=== PATIENT | female | born 1940 | race Caucasian/White ===

== ENCOUNTER 2018-06-08 17:38 | Inpatient (IN) | payer BC, MEDICARE ==
--- NOTE | 2018-06-08 18:00 | ERNOTE ---
Dyspnea - General Presenting Symptoms: shortness of breath Time Seen by Provider: 06/08/18 17:51 Source: patient, family Exam Limitations: no limitations - Immun/Allergies/Home Medications Immunizations: IMMUNIZATION HX Immunizations Up to Date No History of Influenza Vaccine No Hx Pneumococcal Vaccination No Allergies/Adverse Reactions: Allergies acetaminophen [From Percocet] Adverse Reaction (Mild, Verified 05/03/18 10:01) UPSET STOMACH atorvastatin calcium [From Lipitor] Adverse Reaction (Mild, Verified 05/03/18 10:01) Muscle Pain oxycodone HCl [From Percocet] Adverse Reaction (Mild, Verified 05/03/18 10:01) UPSET STOMACH pravastatin sodium [From Pravachol] Adverse Reaction (Mild, Verified 05/03/18 10:01) HAIR LOSS Home Medications: HOME MEDICATIONS Labetalol HCl [Trandate] 300 mg PO BID 01/17/14 [Last Taken Unknown] vitamin,calcium,lvdqxcno-ynqz-vlzpa acid tablet 1 tab PO DAILY #30 tab 05/29/18 [Last Taken Unknown] spironolactone 50 mg tablet 50 mg PO BID #60 tab 06/07/18 [Last Taken Unknown] - History of Present Illness Narrative: PAtient states that she has been progressively short of breath for a few days. She has a history liver cirrhosis, is not aware of any lung or heart disease. She saw her PCP (Dr Perdomo) two weeks ago was diagnosed with a possible pneumonia and treated with oral antibiotics. She also had a moderate right sided pleural effusion, denies chest pain, no fever, slight cough. O2 sat on arrival was 88% Severity: severe Initiating event: Denies: upper resp illness Frequency of episodes: Reports: occassional episodes Modifying Factors - (Improves): Reports: nothing Modifying Factors (Worsens): Reports: activity Associated Symptoms-Dyspnea: Denies: fever/chills, chest pain/discomfort Prior Treatment: Reports: recently seen. Denies: currently on antibiotics Review of Systems - Review of Systems Constitutional: Present: recent illness. Absent: fever ENT: Absent: nose congestion, sore throat Respiratory: Present: See HPI, shortness of breath Cardiology: Absent: chest pain Gastrointestinal/Abdominal: Absent: nausea, abdominal pain Genitourinary: Present: no symptoms reported Medical History (Last Reviewed 06/08/18 @ 18:40 by Emily Nelson MD) Left hip pain (Chronic) Hyperlipidemia (Chronic) Onset Date: Unknown Thrombocytopenia (Chronic) Onset Date: ~07/18/17 Lower extremity edema (Chronic) Onset Date: ~01/14/14 Lichen planus (Chronic) Onset Date: ~04/2015 Lesion of spleen (Chronic) Onset Date: ~07/18/17 Hypertension (Chronic) Onset Date: ~1993 Cirrhosis of liver (Chronic) Onset Date: ~07/18/17 Abnormal Pap smear of vagina Onset Date: ~1968 Abnormal electrocardiogram Onset Date: ~12/2010 Anemia Onset Date: Unknown Pneumonia Onset Date: Unknown Surgical History: Surgical History (Last Reviewed 06/08/18 @ 18:40 by Emily Nelson MD) Cataract Onset Date: ~01/21/14 H/O toe surgery Onset Date: ~02/10/06 Right-Dr Boo History of YAG laser capsulotomy of lens of left eye Onset Date: ~10/21/14 History of colonoscopy Onset Date: ~07/08/15 [place]-'07 tubular adenoma x2. '15 Tubular adenoma. Recheck 5 yrs. History of open reduction and internal fixation (ORIF) procedure Onset Date: ~12/24/10 left ankle History of total abdominal hysterectomy Onset Date: ~1969 Family History: Family History (Last Reviewed 05/30/18 @ 12:38 by Esteban Perdomo MD) Father Throat cancer Brother Leukemia Sister Breast cancer Lung cancer Son Suicide Social History: Preferred Language Czech Smoking Status Current some day smoker Abuse History No History of abuse Psych History No pertinent hx (Last Updated 05/30/18 @ 12:46 by Esteban Perdomo MD) No Social History Section defined states that she stopped smoking a long time ago Physical Exam - Physical Exam General Appearance: Present: wd/wn, alert, moderate distress, anxious Head Exam: Present: normal inspection Respiratory: Present: respiratory distress, decreased breath sounds - on complete right lung, expiration (prolonged) - left lung, wheezing - left lung Cardiovascular/Chest: Present: regular rate, rhythm, no murmur Gastrointestinal/Abdominal: Present: nontender Extremity Exam: Present: pedal edema Neurological Exam: Present: alert, oriented, normal mood/affect Skin Exam: Present: warm/dry, jaundice ED Progress - Results and Orders Patient's Lab Results:: I have reviewed the patient's lab results. - Vital Signs Patient's Vital Signs:: I have reviewed the patient's vital signs. Vital Signs: Vital Signs 06/08/18 17:48 Temperature 37.0 C Pulse Rate 96 Respiratory Rate 29 H Blood Pressure 154/97 H O2 Sat by Pulse Oximetry 95 - EKG EKG: NSR EKG read: Interp. by me - X-Ray X-Ray #1 X-Ray: chest - right sided pleural effusion with almost complete white out of right side Interpretation: Interp. by me X-Ray #2 X-Ray: chest - reduced pleural effusion Interpretation: Interp. by me - Progress/Reassessment Chief Complaint: Dyspnea Progress Note-Subjective: 06/08/18 18:[address] Gates 06/08/18 18:47 improved air movement on left lung after albuterol, patient not feeling much better 06/08/18 19:12 Dr Gates at bedside 06/08/18 20:20 patient feels only minimally better 2 liters of fluids were tapped off her lungs offered admission, patient agreed reports that patient used to drink gin and tonic (amount?) on a regular basis, she has now cut down to one glass wine daily 06/08/18 20:[address] Matt, cheleay to admit for observation, give one dose of ancef Departure Clinical Impression: Pleural effusion associated with hepatic disorder Cirrhosis of liver Qualifiers: Hepatic cirrhosis type: unspecified hepatic cirrhosis Ascites presence: unspecified Qualified Code(s): K74.60 - Unspecified cirrhosis of liver - Departure Disposition: Still a patient Condition: Stable
[2018-06-08] MEDS ORDERED: ALBUTEROL SULFATE 2.5 MG/0.5 ML VIAL.NEB IH ONE (18:23)
[2018-06-08 18:24] LABS: Prothrombin Time (Patient) 16.9 Seconds (9.0-11.0)
[2018-06-08] MEDS ORDERED: MORPHINE SULFATE 2 MG/ML DISP.SYRIN IV ONE (18:24)
[2018-06-08 18:30] LABS: ALT 35 U/L (19-67); AST 54 U/L (0-48); Albumin * 1.9 gm/dl (3.4-5.0); Alkaline Phosphatase * 222 U/L (50-170); Amylase * 63 U/L (25-115); Anion Gap 11.3 mmol/L (6.8-13.8); BNP * 370 pg/mL (5-550); BUN/Creatinine Ratio 20.4 (9.0-21.6); Bilirubin, Total 8.5 mg/dL (0.0-1.1); Blood Urea Nitrogen 20 mg/dL (3-23); Ca. Corrected For Albumin 10.1 mg/dL (8.4-10.2); Calcium * 8.7 mg/dL (7.9-10.9); Carbon Dioxide 21.5 mmol/L (24-32.6); Chloride 103 mmol/L (97-106); Glucose * 124 mg/dL (70-110); Lipase 312 U/L (73-393); Potassium 4.8 mmol/L (3.4-4.6); Sodium 131 mmol/L (132-142); Total Protein 6.7 gm/dL (6.2-8.2); Troponin I Less than 0.017 ng/mL (0.00-0.10)
[2018-06-08 18:47] LABS: INR 1.68 INR (0.90-1.10); Partial Thrombolplastin Time 35.6 Seconds (24-32)
[2018-06-08 18:55] LABS: Hematocrit 38.1 % (37.0-47.0); Hemoglobin 13.2 gm/dL (12.5-16.0); Mean Cell Volume 116.5 fl (78-100); Mean Corpuscular Hemoglobin 40.4 pg (27-31); Mean Corpuscular Hgb Conc 34.6 g/dl (32-36); Mean Platelet Volume 8.7 fl (8-12.5); Platelet Count 117 K/mm3 (150-450); Red Blood Count 3.27 M/mm3 (4.2-5.4); Red Cell Distribution Width 15.8 % (11.5-14.0); White Blood Count 6.6 K/mm3 (4.0-10.5)
[2018-06-08 19:18] LABS: Total Cells Counted 100
[2018-06-08 19:19] LABS: Anisocytosis 1+; Band 1 % (0-2.0); Eosinophil 2 % (0-3); Giant Platelets Trace; Lymphocyte 4 % (20-51); Monocyte 8 % (0-9); Neutrophil 85 % (42-75); Neutrophil # 5.6 K/mm3 (1.3-6.0); Platelet Estimate Decreased (NORMAL)
[2018-06-08] MEDS ORDERED: BUPIVACAINE HCL 50 ML VIAL IJ ONE (19:33)
[2018-06-08 20:26] LABS: Body Fluid WBC 2750 /uL (0-1000)
[2018-06-08 20:29] LABS: Body Fluid Appearance BLOODY (CLEAR); Body Fluid Color RED (COLORLESS)
--- NOTE | 2018-06-08 20:32 | OR ---
Operative Report - Dictated Report Narrative: OPERATIVE REPORT DATE OF OPERATION: 06/08/2018 PREOPERATIVE DIAGNOSIS: Right pleural effusion POSTOPERATIVE DIAGNOSIS: Right pleural effusion OPERATION: Right posterior thoracentesis SURGEON: Natalie Gates MD ANESTHESIA: 0.5% Marcaine INDICATIONS FOR PROCEDURE: The patient is an 78-year-old female who has had an increasing right pleural effusion. She has become acutely more short of breath and chest x-ray reveals almost complete opacification of the right hemithorax with a left shift. Her platelet count is decreased and her INR is 1.6, however the benefit of thoracentesis outweighs the possible risk of serious bleeding. FINDINGS: 2 L of blood-tinged fluid removed NARRATIVE OF PROCEDURE: The patient was identified preoperatively and prior to the procedure multidisciplinary timeout was observed. The right posterior chest was percussed and a level of dullness marked. The right posterior chest was prepped with chlorhexidine and a sterile drape was placed. 0.5% Marcaine was used to anesthetize the skin, subcutaneous tissue, and periosteum of the chosen rib. The same needle was then used to access the right chest with return of slightly blood-tinged fluid. Next using a safety centesis kit the right posterior chest was accessed and the catheter advanced. This was then connected to a suction bottle and 1 L of blood-tinged fluid was removed. An additional bottle was then connected and an additional 1 L of fluid removed. The catheter was then removed and a pressure dressing of 2 x 2 and Band-Aid was applied. The patient tolerated the procedure well without complication. Post procedure chest x-ray revealed decrease in the left shift and less fluid in the right chest. Fluid was sent to the lab. The patient will be placed in observation and consideration given to additional tap depending on the chest x-ray tomorrow. Reviewed and electronically signed
[2018-06-08] MEDS ORDERED: ceFAZolin SODIUM 1 GM VIAL IV ONE (20:37)
[2018-06-08] MEDS ORDERED: NORMAL SALINE 1,000 ML IV ONE (20:37)
[2018-06-08] MEDS ORDERED: ceFAZolin SODIUM 1 GM in DEXTROSE 5 % IN WATER 100 ML IV SCH ×2 (22:30)
[2018-06-09] MEDS: MORPHINE SULFATE 2 MG/ML DISP.SYRIN IV PRN (02:57)
[2018-06-09 05:54] LABS: Total Protein Body Fluid 3.2 mg/dL
[2018-06-09 06:38] LABS: LD 303 U/L (81-234)
--- NOTE | 2018-06-09 07:21 | HP ---
Chief Complaint - Chief Complaint Date of Service: 06/09/18 Time of Service: 07:00 Chief Complaint: Can't breath! History of Present Illness: Pt. is 78 WF with PMH significant for cirrhosis of the liver and chronic right pleural effusion (of unknown etiology and with previous thoracentesis due to severe symptoms) has been battling SOB, but with CXR showing no progression of effusion until recently, for which she was admitted due to hypoxia, SOB and left shift of the mediastinum due to the effusion. She denies F/C/hemoptysis/N/V but has had more RUQ pain. She has limited her EtOH consumption to 1 glass of wine/day down from 4-6 mixed drinks daily and denies any other vices. She does have a history of smoking (50py), but previous workup of her pleural effusion did not show concerns for lung cancer. She denies any CP, but has had more orthopnea and increased LE edema. She had to decrease her lasix and stop her spironolactone due to hypotension, but restarted the spironolactone the last week due to increasing LE edema. When she presented to the ER she was in significant respiratory distress, requiring O2 at 2LNC to keep sats in the low 90's (normally she is just on RA with sats in the low 90's), RR was in the upper 20's, low 30's and was found to have significant pleural effusion filling up almost the entire lung cavity, with left shift of the mediastinum, causing cardiac output issues as well as oxygenation issues. She was taken to OR by Dr. Gates who did a thoracentesis and this am she is breathing better, but still with complaint of RUQ pain. Medical History (Last Reviewed 06/09/18 @ 02:20 by Michelle Allen RN) Left hip pain (Chronic) Hyperlipidemia (Chronic) Onset Date: Unknown Thrombocytopenia (Chronic) Onset Date: ~07/18/17 Lower extremity edema (Chronic) Onset Date: ~01/14/14 Lichen planus (Chronic) Onset Date: ~04/2015 Lesion of spleen (Chronic) Onset Date: ~07/18/17 Hypertension (Chronic) Onset Date: ~1993 Cirrhosis of liver (Chronic) Onset Date: ~07/18/17 Arthritis Abnormal Pap smear of vagina Onset Date: ~1968 Abnormal electrocardiogram Onset Date: ~12/2010 Anemia Onset Date: Unknown Pneumonia Onset Date: Unknown Surgical History: Surgical History (Last Reviewed 06/09/18 @ 02:21 by Michelle Allen RN) History of partial hysterectomy Onset Date: ~1969 Cataract Onset Date: ~01/21/14 H/O toe surgery Onset Date: ~02/10/06 Right-Dr Boo History of YAG laser capsulotomy of lens of left eye Onset Date: ~10/21/14 History of colonoscopy Onset Date: ~07/08/15 [place]ingu[place]-' tubular adenoma x2. '15 Tubular adenoma. Recheck 5 yrs. History of open reduction and internal fixation (ORIF) procedure Onset Date: ~12/24/10 left ankle Family History: Family History (Last Reviewed 06/09/18 @ 02:21 by Michelle Allen RN) Father Throat cancer Brother Leukemia Sister Breast cancer Lung cancer Son Suicide Social History: Patient Lives/Resources With Spouse Utilized Preferred Language Albanian Do you have any hoahaoism or Yes: samaritan cultural preference? Smoking Status Former smoker Have you smoked in the past 12 No months Do you dip or chew tobacco No Abuse History No History of abuse Psych History No pertinent hx Alcohol Use occasionally Drug Use none (Last Updated 05/30/18 @ 12:46 by Esteban Perdomo MD) No Social History Section defined Review Of Systems (GEN) - Review of Systems Generalized/Overall Review: Present: Weakness, Malaise, Fatigue, Weight gain. Absent: Chills, Fever, Diaphoresis EENTM: Present: No Symptoms Reported Respiratory: Present: Cough, Shortness of Breath, Orthopnea. Absent: Stridor, Wheezing Cardiac: Present: Edema. Absent: Chest Pain, Palpitations, Syncope Abdominal: Present: Abdominal Pain. Absent: Nausea, Vomiting, Hematemesis, Constipation, Diarrhea, Melena, Bright blood from rectum Genitourinary: Present: No Symptoms Reported Musculoskeletal: Present: No Symptoms Reported Neurological: Present: Weakness Skin: Present: No Symptoms Reported Endocrine: Present: No Symptoms Reported Immunizations: IMMUNIZATION HX Immunizations Up to Date No History of Influenza Vaccine No Hx Pneumococcal Vaccination No Allergies/Adverse Reactions: Allergies Allergy/AdvReac Type Severity Reaction Status Date / Time acetaminophen [From Percocet] AdvReac Mild UPSET Verified 05/03/18 10:01 STOMACH atorvastatin calcium AdvReac Mild Muscle Pain Verified 05/03/18 10:01 [From Lipitor] oxycodone HCl [From Percocet] AdvReac Mild UPSET Verified 05/03/18 10:01 STOMACH pravastatin sodium AdvReac Mild HAIR LOSS Verified 05/03/18 10:01 [From Pravachol] Home Medications: HOME MEDICATIONS Labetalol HCl [Trandate] 150 mg PO BID 01/17/14 [Last Taken 06/08/18 10:00] vitamin,calcium,wjrmlclt-mmnv-znkxw acid tablet 1 tab PO DAILY #30 tab 05/29/18 [Last Taken 06/08/18 10:00] spironolactone 50 mg tablet 50 mg PO BID #60 tab 06/07/18 [Last Taken 06/08/18 10:00] Furosemide 20 mg PO DAILY 06/08/18 [Last Taken 06/08/18 10:00] Exam - Exam Vital Signs: Vital Signs - Last Taken Temp 37.0 C 06/09/18 02:00 Pulse 83 06/09/18 02:00 Resp 16 06/09/18 02:00 BP 110/60 06/09/18 02:00 Pulse Ox 94 06/09/18 02:00 Constitutional: Present: Alert, Oriented x3, Cooperative, Mild distress, Elderly, Looks Older than stated age ENT Exam: Present: hearing grossly normal Eye Exam: bilateral eye: scleral icterus Neck: Present: supple Back Exam: Present: normal inspection Respiratory: Present: chest non-tender, lungs clear, normal breath sounds, no respiratory distress, no accessory muscle use Cardiovascular/Chest: Present: regular rate, rhythm, no JVD, edema Abdomen: Present: Normal bowel sounds, soft, tender - RUQ with hard hepatom egaly, guarding. Absent: rigidity, rebound tenderness /Rectal: Present: Exam deferred Extremity: Present: pedal edema Skin Exam: Present: cool/dry Neurologic: Present: oriented x 3, depressed affect Appearance: Present: appropriate insight, no memory impairment Eye contact: Present: cooperative, normal speech Thoughts: Present: normal thought pattern, no apparent hallucination Diagnostic Studies: Abnormal Lab Results 06/08/18 06/08/18 06/08/18 Range/Units 18:09 18:09 18:09 RBC 3.27 L (4.2-5.4) M/mm3 MCV 116.5 H (78-100) fl MCH 40.4 H (27-31) pg RDW 15.8 H (11.5-14.0) % Plt Count 117 L (150-450) K/mm3 Neutrophils % (Manual) 85 H (42-75) % Lymphocytes % (Manual) 4 L (20-51) % Lymphocytes # (Manual) 0.3 L (1.5-3.5) k/mm3 Platelet Estimate Decreased L (NORMAL) PT 16.9 H (9.0-11.0) Seconds INR (Anticoag Therapy) 1.68 H (0.90-1.10) INR PTT (Chiqui) 35.6 H (24-32) Seconds Sodium 131 L (132-142) mmol/L Potassium 4.8 H (3.4-4.6) mmol/L Carbon Dioxide 21.5 L (24-32.6) mmol/L Est GFR (Non-Af Amer) 58 L D (60-130) mL/min Random Glucose 124 H (70-110) mg/dL Total Bilirubin 8.5 H (0.0-1.1) mg/dL AST 54 H (0-48) U/L Alkaline Phosphatase 222 H (50-170) U/L Lactate Dehydrogenase 303 H (81-234) U/L Albumin 1.9 L (3.4-5.0) gm/dl Fluid WBC (0-1000) /uL Fluid RBC (0-1000) /uL 06/08/18 Range/Units 20:00 RBC (4.2-5.4) M/mm3 MCV (78-100) fl MCH (27-31) pg RDW (11.5-14.0) % Plt Count (150-450) K/mm3 Neutrophils % (Manual) (42-75) % Lymphocytes % (Manual) (20-51) % Lymphocytes # (Manual) (1.5-3.5) k/mm3 Platelet Estimate (NORMAL) PT (9.0-11.0) Seconds INR (Anticoag Therapy) (0.90-1.10) INR PTT (Kaufman) (24-32) Seconds Sodium (132-142) mmol/L Potassium (3.4-4.6) mmol/L Carbon Dioxide (24-32.6) mmol/L Est GFR (Non-Af Amer) (60-130) mL/min Random Glucose (70-110) mg/dL Total Bilirubin (0.0-1.1) mg/dL AST (0-48) U/L Alkaline Phosphatase (50-170) U/L Lactate Dehydrogenase (81-234) U/L Albumin (3.4-5.0) gm/dl Fluid WBC 2750 H (0-1000) /uL Fluid RBC Greater than 1000.0 H (0-1000) /uL Laboratory Results WBC 6.6 K/mm3 (4.0-10.5) 06/08/18 18: RBC 3.27 M/mm3 (4.2-5.4) L 06/08/18 18: Hgb 13.2 gm/dL (12.5-16.0) 06/08/18 18: Hct 38.1 % (37.0-47.0) 06/08/18 18: MCV 116.5 fl (78-100) H 06/08/18 18: MCH 40.4 pg (27-31) H 06/08/18 18: MCHC 34.6 g/dl (32-36) 06/08/18 18: RDW 15.8 % (11.5-14.0) H 06/08/18 18:09 Plt Count 117 K/mm3 (150-450) L 06/08/18 18: MPV 8.7 fl (8-12.5) 06/08/18 18:09 Neutrophils % (Manual) 85 % (42-75) H 06/08/18 18:09 Band Neuts % (Manual) 1 % (0-2.0) 06/08/18 18:09 Lymphocytes % (Manual) 4 % (20-51) L 06/08/18 18:09 Monocytes % (Manual) 8 % (0-9) 06/08/18 18:09 Eosinophils % (Manual) 2 % (0-3) 06/08/18 18:09 Neutrophils # (Manual) 5.6 K/mm3 (1.3-6.0) 06/08/18 18:09 Lymphocytes # (Manual) 0.3 k/mm3 (1.5-3.5) L 06/08/18 18:09 Monocytes # (Manual) 0.5 k/mm3 (0.0-1.0) 06/08/18 18:09 Eosinophils # (Manual) 0.1 k/mm3 (0.0-0.7) 06/08/18 18:09 Platelet Estimate Decreased (NORMAL) L 06/08/18 18:09 Giant Platelets Trace 06/08/18 18:09 Anisocytosis 1+ 06/08/18 18:09 PT 16.9 Seconds (9.0-11.0) H 06/08/18 18:09 INR (Anticoag Therapy) 1.68 INR (0.90-1.10) H 06/08/18 18:09 PTT (Chiqui) 35.6 Seconds (24-32) H 06/08/18 18:09 Sodium 131 mmol/L (132-142) L 06/08/18 18:09 Plasma Sodium 131 mmol/L (130-142) 06/08/18 18:09 Potassium 4.8 mmol/L (3.4-4.6) H 06/08/18 18:09 Chloride 103 mmol/L (97-106) 06/08/18 18:09 Carbon Dioxide 21.5 mmol/L (24-32.6) L 06/08/18 18:09 Anion Gap 11.3 mmol/L (6.8-13.8) 06/08/18 18:09 BUN 20 mg/dL (3-23) 06/08/18 18:09 Creatinine 0.98 mg/dL (0.4-1.4) 06/08/18 18:09 Est GFR (Non-Af Amer) 58 mL/min (60-130) L D 06/08/18 18:09 BUN/Creatinine Ratio 20.4 (9.0-21.6) 06/08/18 18:09 Random Glucose 124 mg/dL (70-110) H 06/08/18 18:09 Calcium 8.7 mg/dL (7.9-10.9) 06/08/18 18:09 Calcium Adj for Albumin 10.1 mg/dL (8.4-10.2) 06/08/18 18:09 Total Bilirubin 8.5 mg/dL (0.0-1.1) H 06/08/18 18:09 AST 54 U/L (0-48) H 06/08/18 18:09 ALT 35 U/L (19-67) 06/08/18 18:09 Alkaline Phosphatase 222 U/L (50-170) H 06/08/18 18:09 Ammonia 18.0 mcmol/L (11-35) 06/08/18 18:09 Lactate Dehydrogenase 303 U/L (81-234) H 06/08/18 18:09 Troponin I Less than 0.017 ng/mL (0.00-0.10) 06/08/18 18:09 B-Natriuretic Peptide 370 pg/mL (5-550) 06/08/18 18:09 Total Protein 6.7 gm/dL (6.2-8.2) 06/08/18 18:09 Albumin 1.9 gm/dl (3.4-5.0) L 06/08/18 18:09 Amylase 63 U/L (25-115) 06/08/18 18:09 Lipase 312 U/L (73-393) 06/08/18 18:09 Fluid Color Red (COLORLESS) 06/08/18 20:00 Fluid Appearance Bloody (CLEAR) 06/08/18 20:00 Fluid WBC 2750 /uL (0-1000) H 06/08/18 20:00 Fluid RBC Greater than 1000.0 /uL (0-1000) H 06/08/18 20:00 Fluid Neutrophils 34 % 06/08/18 20:00 Fluid Lymphocytes 63 % 06/08/18 20:00 Fluid Monocytes 2 % 06/08/18 20:00 Fluid Eosinophils 1 % 06/08/18 20:00 Fluid Total Protein 3.2 mg/dL 06/08/18 19:00 Fluid LDH 235 U/L 06/08/18 19:00 Miscellaneous Cytology Spec. sent to path. 06/08/18 20:00 Assessment/Plan - Assessment/Plan (1) RUQ abdominal pain Assessment: most likely from her liver cirrhosis. will follow for now. Problem: Acute (2) Hypoxia Assessment: due to severe pleural effusion. she is still on O2 this am and will need to either be weaned off O2 or qualify for home O2. Problem: Acute (3) Respiratory distress, acute Assessment: stabilized post thoracentesis. Problem: Acute (4) Leukopenia Problem: Acute (5) Shortness of breath Problem: Acute (6) Pleural effusion associated with hepatic disorder Assessment: most likely from her liver, though still concerns for lymphoma or other causes so will get flow cytometry from the fluid draw off yesterday to see if there is another cause or reason. Will restart her labetolol and spironolactone for now to see how her BP's due and in hopes this will help sx. Will restart lasix as her BP's tolerate it. Problem: Acute (7) Cirrhosis of liver Assessment: most likely causing her persistant and worsening pleural effusion. She has stated she doesn't want any aggression tx or procedures such as a TIPS (which I'm not sure if this would help or not anyway). Will continue to manage sx with medications, but will possibly need periodic thoracentesis. Will try to discuss hospice with her later today. Problem: Chronic Qualifiers: Hepatic cirrhosis type: unspecified hepatic cirrhosis Ascites presence: unspecified Qualified Code(s): K74.60 - Unspecified cirrhosis of liver (8) Discharge planning issues Assessment: can discharge when off O2 or O2 in place at home. d/w her hospice. await pathology and flow cytometry results to hopefully be able to better direct her care. Problem: Acute
[2018-06-09] MEDS: SPIRONOLACTONE 25 MG TABLET PO SCH ×2 (09:19→21:39)
[2018-06-09] MEDS: LABETALOL HCL 100 MG TABLET PO SCH ×2 (09:19→21:38)
[2018-06-09] MEDS: PRENATAL VITS96/IRON FUM/FOLIC 1 TAB TABLET PO SCH (09:28)
[2018-06-09] MEDS: ONDANSETRON HCL/PF 2 MG/ML VIAL IV PRN ×2 (11:32→17:05)
--- NOTE | 2018-06-09 14:30 | PN ---
Magdalena Note - Interim Date: 06/09/18 Time: 11:45 Narrative: 06/09/18 14:24 Pt. having troubles mentating and staying awake. She knows where she is, but is having troubles focusing and making decisions right now. D/w her in regards to doing hospice and she is falling asleep during the conve rsation with her drifting in and out, saying "i'm not sure" and "I'm having troubles focusing". She is more jaundice now than she was a couple weeks ago and definitely more somnolent, weak and thin. A/P: Encephalopathy due to liver failure/cirrhosis. Patient is definitely not able to go home and be independent as she will be at high fall risk, increasing her risk for significant morbidity if not mortality. Given her liver failure a fall that causes a head injury could definitely lead to intracranial bleed. I think that due to this risk she should qualify for inpatient care, with assessment and treatment with Physical Therapy, prior to making a decision to go home or possibly to a care center. She is not capable of being independent enough to do either at this time though.
--- NOTE | 2018-06-10 09:07 | PN ---
Subjective - Date and Time Seen Date: 06/10/18 Time: 08:58 Subjective Narrative: Still feels weak, but somewhat better this am, though states didn't sleep well. Still feeling very SOB. She has decided to go to hospice and to the NH so she can be cared for as she doesn't want to burden her . Objective - Review of Systems Generalized/Overall Review: Reports: Weakness, Fatigue. Denies: Chills, Fever EENTM: Reports: No Symptoms Reported Respiratory: Reports: Shortness of Breath, Orthopnea Cardiac: Denies: Chest Pain Abdominal: Reports: Nausea, Vomiting. Denies: Constipation, Diarrhea Genitourinary Symptoms: Reports: No Symptoms Reported Musculoskeletal Complaints: Reports: No Symptoms Reported Neurological: Reports: Weakness Skin: Reports: No Symptoms Reported Endocrine: Reports: No Symptoms Reported - Vitals Vitals: Last Vital Signs Temp 36.9 C 06/10/18 07:18 Pulse 88 06/10/18 07:18 Resp 20 06/10/18 07:18 BP 102/40 06/10/18 07:18 Pulse Ox 91 L 06/10/18 07:18 - Exam Constitutional: Present: Alert, Oriented x3, Cooperative, Mild distress, Elderly ENT Exam: Present: hearing grossly normal Neck: Present: supple Respiratory: Present: respiratory distress, accessory muscle use, other - decreased BS in right base with dullness to percussion 2/3 up. CTA on left. Cardiovascular/Chest: Present: regular rate, rhythm Extremity: Present: lower extremity edema Skin Exam: Present: normal color Neurologic: Present: shipping and receiving assistant II-XII nml as tested, normal mood/affect, oriented x 3 Appearance: Present: appropriate appearance, appropriate insight, neat, no memory impairment Eye contact: Present: cooperative, good eye contact, normal speech Assessment/Plan - Problems/Diagnosis (1) RUQ abdominal pain Problem: Acute Narrative: stable. no further w/u needed at this time as patient choosing hospice and no further testing be done. (2) Hypoxia Problem: Acute Narrative: resolved after thoracentesis. O2 sats have declined this am and CXR does show reacummulation of fluid on right lung (3) Respiratory distress, acute Problem: Acute Narrative: improved, follow for now (4) Shortness of breath Problem: Acute (5) Pleural effusion associated with hepatic disorder Problem: Acute Narrative: pt. going to hospice. will tx sx's though will be difficult as diuretics bottom out her BP's. may need to just to comfort care measures as best we can. (6) Cirrhosis of liver Problem: Chronic Qualifiers: Hepatic cirrhosis type: unspecified hepatic cirrhosis Ascites presence: unspecified Qualified Code(s): K74.60 - Unspecified cirrhosis of liver (7) Discharge planning issues Problem: Acute Narrative: anticipate her being her at least until TUESDAY am, which will allow us to determine what additional therapies she might need on discharge as she her effussion is increasing and so will most likely need morphine and possible O2 at time of discharge.
[2018-06-10] MEDS: PRENATAL VITS96/IRON FUM/FOLIC 1 TAB TABLET PO SCH (09:27)
[2018-06-10] MEDS: LABETALOL HCL 100 MG TABLET PO SCH ×2 (09:28→23:44)
[2018-06-10] MEDS: SPIRONOLACTONE 25 MG TABLET PO SCH ×2 (09:29→23:45)
[2018-06-10] MEDS: MORPHINE SULFATE 2 MG/ML DISP.SYRIN IV PRN (21:42)
--- NOTE | 2018-06-11 08:03 | PN ---
Subjective - Date and Time Seen Date: 06/11/18 Time: 08:03 Subjective Narrative: states overall feels the same as yesterday. Still BRIONES, RUQ pain and some nausea, but not vomiting. Feels tired. Objective - Review of Systems Generalized/Overall Review: Reports: Weakness. Denies: Chills, Fever EENTM: Reports: No Symptoms Reported Respiratory: Reports: Shortness of Breath, Orthopnea Cardiac: Reports: No Symptoms Reported Abdominal: Reports: Nausea. Denies: Vomiting, Hematemesis, Bright blood from r ectum Genitourinary Symptoms: Reports: No Symptoms Reported Musculoskeletal Complaints: Reports: No Symptoms Reported Neurological: Reports: Weakness Skin: Reports: No Symptoms Reported Endocrine: Reports: No Symptoms Reported - Vitals Vitals: Last Vital Signs Temp 36.6 C 06/11/18 06:30 Pulse 74 06/11/18 06:30 Resp 20 06/11/18 06:30 BP 109/53 06/11/18 06:30 Pulse Ox 90 L 06/11/18 06:30 - Exam Constitutional: Present: Alert, Oriented x3, Cooperative, Mild distress, Elderly ENT Exam: Present: hearing grossly normal Neck: Present: supple Respiratory: Present: no respiratory distress, other - decreased BS on the right throughout. Cardiovascular/Chest: Present: regular rate, rhythm, systolic murmur - 4/6 LUSB. Abdomen: Present: Normal bowel sounds, soft, no rebound tenderness, tender - RUQ with liver enlargement and nodularity. Extremity: Present: no calf tenderness Skin Exam: Present: jaundice Neurologic: Present: normal mood/affect, oriented x 3 Appearance: Present: appropriate appearance, appropriate insight, neat Eye contact: Present: cooperative, good eye contact, normal speech Thoughts: Present: normal thought pattern, no apparent hallucination Assessment/Plan - Problems/Diagnosis (1) RUQ abdominal pain Problem: Acute Narrative: due to liver failure/cirrhosis (2) Hypoxia Problem: Resolved (3) Respiratory distress, acute Problem: Resolved (4) Shortness of breath Problem: Acute Narrative: due to pleural effusion on right. (5) Pleural effusion associated with hepatic disorder Problem: Acute Narrative: re-accumulated. follow for now. (6) Cirrhosis of liver Problem: Chronic Qualifiers: Hepatic cirrhosis type: unspecified hepatic cirrhosis Ascites presence: unspecified Qualified Code(s): K74.60 - Unspecified cirrhosis of liver Narrative: end stage. (7) Discharge planning issues Problem: Acute Narrative: plan is to discharge tomorrow to nursing facility on hospice and she has end stage liver failure with no desire to do any further treatment but to be made comfortable. cannot manage her at home.
[2018-06-11] MEDS: PRENATAL VITS96/IRON FUM/FOLIC 1 TAB TABLET PO SCH (09:01)
[2018-06-11] MEDS: LABETALOL HCL 100 MG TABLET PO SCH ×2 (09:02→20:21)
[2018-06-11] MEDS: SPIRONOLACTONE 25 MG TABLET PO SCH ×2 (09:02→20:21)
[2018-06-11] MEDS: MORPHINE SULFATE 2 MG/ML DISP.SYRIN IV PRN (19:11)
[2018-06-12] MEDS: LABETALOL HCL 100 MG TABLET PO SCH (08:14)
[2018-06-12] MEDS: PRENATAL VITS96/IRON FUM/FOLIC 1 TAB TABLET PO SCH (08:15)
--- NOTE | 2018-06-12 11:53 | DS ---
(1) RUQ abdominal pain Problem: Acute (2) Hypoxia Problem: Resolved (3) Respiratory distress, acute Problem: Resolved (4) Shortness of breath Problem: Acute (5) Pleural effusion associated with hepatic disorder Problem: Acute (6) Cirrhosis of liver Problem: Chronic Qualifiers: Hepatic cirrhosis type: unspecified hepatic cirrhosis Ascites presence: unspecified Qualified Code(s): K74.60 - Unspecified cirrhosis of liver (7) Discharge planning issues Problem: Acute (8) Encephalopathy, hepatic Problem: Resolved Description of Stay: Pt. admitted for acute respiratory distress due to severe right sided pleural effusion, due to end stage liver disease, that was causing mediastinal left shift. She also was have signs and symptoms of an acute encephalopathy, also thought to be due to ESLD, but probably had some hypoxic issues involved as sx did improve rapidly after the thoracentesis was done and her being on O2, but also seemed to improve even further once back on her labetolol and spironolactone. Acute respiratory distress with hypoxia: She was weaned off her O2 and maintained her sats in the low 90's throughout the rest of her stay, but did get severely BRIONES with just a short walk to the restroom. End stage liver disease that is worsening: she has chosen to go on hospice. We will stop her diuretics as this seems to cause distress from her having to run to the bathroom and she is concerned about being prolonged and suffering. Depression: she did express feeling depressed and does have some anorexia, so remeron will be started at time of discharge. Procedures Performed: none Results and Findings: Lab Pending Results 06/08/18 18:09: WBC 6.6, RBC 3.27 L, Hgb 13.2, Hct 38.1, MCV 116.5 H, MCH 40.4 H, MCHC 34.6, RDW 15.8 H, Plt Count 117 L, MPV 8.7, Neutrophils % (Manual) 85 H, Band Neuts % (Manual) 1, Lymphocytes % (Manual) 4 L, Monocytes % (Manual) 8, Eosinophils % (Manual) 2, Neutrophils # (Manual) 5.6, Lymphocytes # (Manual) 0.3 L, Monocytes # (Manual) 0.5, Eosinophils # (Manual) 0.1, Platelet Estimate Decreased L, Giant Platelets Trace, Anisocytosis 1+ 11/29/18 18:09: Sodium 131 L, Plasma Sodium 131, Potassium 4.8 H, Chloride 103, Carbon Dioxide 21.5 L, Anion Gap 11.3, BUN 20, Creatinine 0.98, Est GFR (Non-Af Amer) 58 L D, BUN/Creatinine Ratio 20.4, Random Glucose 124 H, Calcium 8.7, Calcium Adj for Albumin 10.1, Total Bilirubin 8.5 H, AST 54 H, ALT 35, Alkaline Phosphatase 222 H, Lactate Dehydrogenase 303 H, Troponin I Less than 0.017, B- Natriuretic Peptide 370, Total Protein 6.7, Albumin 1.9 L, Amylase 63, Lipase 312 06/08/18 18:09: PT 16.9 H, INR (Anticoag Therapy) 1.68 H, PTT (Chiqui) 35.6 H 06/08/18 18:09: Ammonia 18.0 06/08/18 19:00: Fluid Total Protein 3.2, Fluid LDH 235 06/08/18 20:00: Miscellaneous Cytology Spec. sent to path. 06/08/18 20:00: Fluid Color Red, Fluid Appearance Bloody, Fluid WBC 2750 H, Fluid RBC Greater than 1000.0 H, Fluid Neutrophils 34, Fluid Lymphocytes 63, Fluid Monocytes 2, Fluid Eosinophils 1 Discharge Location: [facility] Disposition: Hospice Home Home Health Agency: [facility] Hospice Condition: Poor Discharge Activity: Activity as tolerated Discharge Diet: General/regular food Referrals: Esteban Perdomo MD [Primary Care Provider] - Two Weeks (will see in [place].) Additional Patient Instructions (free text): -Call report and fax discharge orders and info to [facility] and [facility]. -Return patient items from safe. Prescriptions (Any new or edited meds): Mirtazapine [Remeron] 15 mg PO HS #30 tablet Complete Home Medications List: Complete Home Medication List: Labetalol HCl [Trandate] 150 mg PO BID 01/17/14 Mirtazapine [Remeron] 15 mg PO HS #30 tablet 06/12/18
[2018-06-12 13:50] VITALS: BP 123/60
[2018-06-12] MEDS ORDERED: MIRTAZAPINE 15 MG TABLET PO SCH (21:00)
== END 2018-06-12 13:59 | disposition hospice, home (50) | DRG 204 ==
LOC: MS 17:38 → ER 17:38 → MS 21:25
PROVIDERS: ADMIT Family Medicine; ATTEND Family Medicine
CPT/HCPCS: 36415; 71010; 71045; 80053; 82140; 82150; 83519; 83615; 83690; 83880; 84155; 84157; 84484; 85025; 85610; 85730; 87015; 87070; 87205; 88108; 88305; 89051; 93005; 94640; 94664; 96374; 97116; 97161; 99284; J2405